=== PATIENT | male | born 1980 | race Two or more races ===

== ENCOUNTER 2024-02-28 06:17 | Day surgery (SDC) | payer BC, SELFPAY ==
[2024-02-28] VITALS (10 sets, daily range): BP systolic 139–190; BP diastolic 91–111; BMI 38.0
[2024-02-28] MEDS: TYLENOL 1000 MG PO (07:53)
[2024-02-28] MEDS: CELEBREX 200 MG PO (07:53)
== END 2024-02-28 12:24 | disposition home or self-care (01) ==
LOC: SDS 06:17
PROVIDERS: ATTENDING PHYSICIAN Orthopaedic Surgery Hand Surgery
DX: M75.121 Complete rotator cuff tear or rupture of right shoulder, not specified as traumatic (principal); M75.41 Impingement syndrome of right shoulder
CPT/HCPCS: 29827; 29828; C1713